=== PATIENT | female | born 1995 | race Caucasian/White ===

== ENCOUNTER 2017-06-04 09:36 | Emergency (ER) | payer SELFPAY ==
[~2017-06-04] VITALS: Ht 160 cm; Wt 55.8 kg
[2017-06-04 09:41] VITALS: BP 122/64
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
--- NOTE | 2017-06-04 10:34 | NUR ---
Patient being evaluated by DR DUNCAN at bedside.
[2017-06-04 10:44] VITALS: BP 116/77
--- NOTE | 2017-06-04 10:44 | NUR ---
Patient discharged with v/s stable. Written and verbal after care instructions given and explained. Patient verbalized understanding. Ambulatory with steady gait. All questions addressed prior to discharge. Advised to follow up with PMD.
== END 2017-06-04 10:44 | disposition home or self-care (01) ==
LOC: MED 09:36
DX: R10.30 Lower abdominal pain, unspecified (principal)
CPT/HCPCS: 81002; 81025; 99283

== ENCOUNTER 2020-09-25 22:12 | Inpatient (IN) | payer MEDICAID ==
[~2020-09-25] VITALS: Ht 165.1 cm; Wt 52.6 kg
[2020-09-25 22:26] VITALS: BP 92/62
--- NOTE | 2020-09-25 22:30 | NUR ---
PATIENT AMBUALTED TO THE LOBBY WITH STEADY GAIT.
[2020-09-25] MEDS ORDERED: ALUMINUM HYD/MAG/SIMETHICONE 30 ML UDC PO ONE (22:50)
[2020-09-25] MEDS ORDERED: ONDANSETRON 4 MG ODT PO ONE (22:50)
--- NOTE | 2020-09-25 22:57 | NUR ---
AMBULATED TO ER BED 1
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
--- NOTE | 2020-09-25 23:20 | NUR ---
ERMD at bedside for examination of patient
[2020-09-25 23:28] LABS: BASOPHILS # (AUTO) 0.1 K/uL (0.00-0.22); BASOPHILS % (AUTO) 0.7 % (0.0-2.0); EOSINOPHILS % (AUTO) 0.2 % (0.0-4.0); HEMOGLOBIN 11.7 g/dL (12.0-16.0); LYMPHOCYTES # (AUTO) 2.2 K/uL (2.5-16.5); LYMPHOCYTES % (AUTO) 22.2 % (20.5-51.1); MEAN CORPUSCULAR HEMOGLOBIN 33 pg (27-31); MEAN CORPUSCULAR HGB CONC 35 g/dL (33-37); MEAN CORPUSCULAR VOLUME 94.6 fL (80-94); MONOCYTES # (AUTO) 0.9 K/uL (0.8-1.0); MONOCYTES % (AUTO) 9.5 % (1.7-9.3); NEUTROPHILS # (AUTO) 6.5 K/uL (1.8-7.7); NEUTROPHILS % (AUTO) 67.4 % (42.2-75.2); PLATELET COUNT (AUTO) 203 K/uL (140-450); RED BLOOD CELL COUNT(AUTO) 3.59 MIL/uL (4.20-5.40); RED CELL DISTRIBUTION WIDTH 12.4 % (11.6-13.7); WHITE BLOOD COUNT (AUTO) 9.7 K/uL (4.8-10.8)
[2020-09-25] MEDS ORDERED: MORPHINE SULFATE 4 MG/ML SYR IVP ONE (23:35)
--- NOTE | 2020-09-25 23:38 | NUR ---
patient ambulated to the bathroom for urine collection.
--- NOTE | 2020-09-26 | NUR ---
ERMD went over consent form. Pt has no questions.
[2020-09-26 00:01] LABS: ALBUMIN 3.4 g/dL (3.4-5.0); ANION GAP 11.6 (8-16); CARBON DIOXIDE 28.7 mmol/L (21-32); CREATININE 0.7 mg/dL (0.6-1.3); POTASSIUM 4.3 mmol/L (3.5-5.1); TOTAL BILIRUBIN 0.7 mg/dL (0.0-1.0)
--- NOTE | 2020-09-26 00:40 | NUR ---
PATIENT TO CT VIA WHEELCHAIR
--- NOTE | 2020-09-26 01:02 | NUR ---
Patient appears to be resting comfortably in bed. Vital Signs within normal limits. Respirations even and unlabored.
[2020-09-26 01:09] LABS: APPEARANCE,URINE CLOUDY (CLEAR); BILIRUBIN,URINE NEGATIVE (NEGATIVE); BLOOD, URINE NEGATIVE (NEGATIVE); COLOR,URINE YELLOW (YELLOW); LEUKOCYTE ESTERASE ,URINE 1+ (NEGATIVE); NITRITE, URINE NEGATIVE (NEGATIVE); UGLUCOSE NEGATIVE (NEGATIVE)
[2020-09-26 01:17] LABS: RBC,URINE 0-5 /HPF (0-5); WBC,URINE 20-60 /HPF (0-5)
--- NOTE | 2020-09-26 02:15 | NUR ---
Patient appears to be resting comfortably in bed. Vital Signs within normal limits. Respirations even and unlabored. Talking on the phone. no signs of acute distress at this time.
[2020-09-26] MEDS ORDERED: cefTRIAXone 1,000 MG VIAL ONE (02:19)
[2020-09-26] MEDS ORDERED: NACL 0.9% 1,000 ML IV ONE (02:45)
[2020-09-26] MEDS ORDERED: DOXYCYCLINE 100 MG in DEXTROSE 5% 100 ML IV ONE (02:55)
[2020-09-26] MEDS ORDERED: DOXYCYCLINE 100 MG VIAL IV ONE ×2 (03:23→03:27)
[2020-09-26] MEDS ORDERED: KETOROLAC 30 MG/ML VIAL IVP ONE ×2 (04:25→06:10)
--- NOTE | 2020-09-26 04:28 | NUR ---
ERMD AT BEDSIDE TO SPEAK WITH PATIENT AND FOR RE-EXAMINATION
[2020-09-26] MEDS ORDERED: MORPHINE SULFATE 2 MG/ML SYR IVP PRN (05:05)
[2020-09-26] MEDS ORDERED: HYDROcodone/APAP 7.5/325 MG 1 TAB PO PRN (05:05)
--- NOTE | 2020-09-26 05:07 | NUR ---
JOJO COLLECTED AND SENT TO LAB, RECEIVED BY MITCHEL DAVIS
[2020-09-26] MEDS: NACL 0.9% 1,000 ML IV SCH ×3 (06:00→21:45)
--- NOTE | 2020-09-26 06:27 | NUR ---
Patient appears to be resting comfortably in bed. Vital Signs within normal limits. Respirations even and unlabored.
--- NOTE | 2020-09-26 07:15 | NUR ---
REPORT GIVEN TO ARACELI ELLIOTT FOR CONTINUATION OF CARE.
--- NOTE | 2020-09-26 07:23 | NUR ---
REPORT RECEIVED FROM NOEL RN FOR CONTINUITY OF CARE
--- NOTE | 2020-09-26 07:48 | NUR ---
RECEIVED REPORT FROM ER NURSE EARL. PATIENT TO BE TRANSFERRED TO UNIT. CC: RLQ ABD PAIN W/ FEVER AND CHILLS; DX: TUBAL OVARIAN CYST; NO SIGNIFICANT HX; NKA; FULL CODE, AMBULATORY. PATIENT AOx4 ON ROOM AIR; NPO EXCEPT MEDS; PATIENT HAS LAC 20G IV RUNNING NS @120ML. PENDING PATIENT TRANSFER.
--- NOTE | 2020-09-26 07:55 | NUR ---
Patient will be admitted to care of DR LING. Admited to TELEMETRY. Will go to room 104-B. Belongings list completed. Report to KAREN CHARLES.
--- NOTE | 2020-09-26 08:46 | NUR ---
PATIENT HAS BEEN SCREENED AND CATEGORIZED LOW NUTRITION RISK. PATIENT WILL BE SEEN WITHIN 7 DAYS OF ADMISSION. 10/02/[address]
[2020-09-26 09:30] VITALS: BP 90/66
--- NOTE | 2020-09-26 09:33 | NUR ---
PATIENT ARRIVED ONTO UNIT. PATIENT ORIENTED TO ROOM. V/S AND MRSA NARES SWAB OBTAINED. PATIENT DENIES PAIN. SAFETY MEASURES IN PLACE. WILL CONTINUE TO MONITOR.
[2020-09-26] MEDS: DOXYCYCLINE 100 MG in DEXTROSE 5% 100 ML IV SCH ×2 (09:52→22:11)
[2020-09-26] MEDS ORDERED: POTASSIUM CHLORIDE 10 MEQ TABER PO PRN (10:15)
[2020-09-26] MEDS ORDERED: MAG SULF 2000 MG/WATER PREMIX 50 ML IV PRN (10:15)
[2020-09-26] MEDS ORDERED: LORazepam 2 MG/ML VIAL IM/IVP PRN (10:15)
[2020-09-26] MEDS ORDERED: ONDANSETRON 4 MG/2 ML VIAL IM/IVP PRN (10:15)
[2020-09-26] MEDS ORDERED: ZOLPIDEM 5 MG TAB PO PRN (10:15)
[2020-09-26] MEDS ORDERED: ACETAMINOPHEN 325 MG TAB PO PRN (10:15)
[2020-09-26] MEDS ORDERED: DOCUSATE SODIUM 100 MG GELCAP PO PRN (10:15)
--- NOTE | 2020-09-26 10:15 | NUR ---
ADMINISTERED PRESCRIBED MEDS PER MD ORDER. PATIENT TOLERATED WELL. MEDICATION EDUCATION PROVIDED. PATIENT VERBALIZED UNDERSTANDING. SAFETY MEASURES IN PLACE. WILL CONTINUE TO MONITOR.
[2020-09-26 10:47] LABS: BASOPHILS % (AUTO) 0.3 % (0.0-2.0); EOSINOPHILS % (AUTO) 0.8 % (0.0-4.0); HEMATOCRIT 31.5 % (36-48); HEMOGLOBIN 10.6 g/dL (12.0-16.0); LYMPHOCYTES # (AUTO) 1.9 K/uL (2.5-16.5); LYMPHOCYTES % (AUTO) 30.1 % (20.5-51.1); MEAN CORPUSCULAR HEMOGLOBIN 32 pg (27-31); MEAN CORPUSCULAR HGB CONC 34 g/dL (33-37); MEAN CORPUSCULAR VOLUME 95.6 fL (80-94); MONOCYTES # (AUTO) 0.8 K/uL (0.8-1.0); MONOCYTES % (AUTO) 13.3 % (1.7-9.3); NEUTROPHILS # (AUTO) 3.4 K/uL (1.8-7.7); NEUTROPHILS % (AUTO) 55.5 % (42.2-75.2); PLATELET COUNT (AUTO) 172 K/uL (140-450); RED CELL DISTRIBUTION WIDTH 12.2 % (11.6-13.7); WHITE BLOOD COUNT (AUTO) 6.2 K/uL (4.8-10.8)
[2020-09-26 10:57] LABS: ANION GAP 9.5 (8-16); CARBON DIOXIDE 26.3 mmol/L (21-32); CREATININE 0.6 mg/dL (0.6-1.3); POTASSIUM 3.8 mmol/L (3.5-5.1)
[2020-09-26 11:02] LABS: PROTHROMBIN TIME 10.3 secs (10.8-13.4)
[2020-09-26 11:11] LABS: FREE T4 (FREE THYROXINE) 1.09 ng/dL (0.76-1.46); PHOSPHORUS 3.2 mg/dL (2.5-4.9); THYROID STIMULATING HORMONE 3.33 uIU/mL (0.34-3.74)
--- NOTE | 2020-09-26 12:21 | NUR ---
PATIENT RESTING IN BED. SHOWS NO SIGNS OF DISTRESS OR DISCOMFORT. VISIBLE RISE AND FALL OF CHEST NOTED. RESPIRATIONS ARE EVEN AND UNLABORED. SAFETY MEASURES IN PLACE. WILL CONTINUE TO MONITOR.
--- NOTE | 2020-09-26 15:00 | NUR ---
PATIENT UP AND ALERT IN BED WATCHING TELEVISION. STATES FEELING THE SAME W/ NO PAIN/DISCOMFORT. UPDATED PATIENT ON MD PLAN. PATIENT VERBALIZED UNDERSTANDING. SAFETY MEASURES IN PLACE. WILL CONTINUE TO MONITOR.
[2020-09-26 16:00] VITALS: BP 112/61
[2020-09-26 17:47] LABS: BARBITURATE, URINE NEGATIVE ng/ml (NEG <=200); BENZODIAZEPINE, URINE NEGATIVE ng/mL (NEG <=200); CANNABINOID, URINE NEGATIVE ng/mL (NEG <=50); COCAINE, URINE NEGATIVE ng/mL (NEG <=300); OPIATE, URINE NEGATIVE ng/mL (NEG <=2000); PHENCYCLIDINE SCREEN,URINE NEGATIVE ng/mL (NEG <=25)
--- NOTE | 2020-09-26 19:43 | NUR ---
ENDORSED PATIENT TO NIGHTSHIFT NURSE FOR CONTINUITY OF CARE.
--- NOTE | 2020-09-26 19:44 | NUR ---
RECEIVED BEDSIDE ENDORSEMENT FROM AM SHIFT RN. PATIENT IS AAOX4, ON ROOM AIR, DENIES PAIN, NO DISTRESS, IVF INFUSING, SAFETY MEASURES IN PLACE, PLAN OF CARE DISCUSSED, CALL LIGHT WITHIN REACH.
[2020-09-26 20:00] VITALS: BP 101/54
--- NOTE | 2020-09-26 21:22 | NUR ---
PT IS WATCHING TV. ROCEPHIN IV GIVEN ORDERED, PATIENT REFUSED HEPARIN, EXPLAINED RISKS AND BENEFITS, STILL REFUSED, WILL CONTINUE TO MONITOR, BEDSIDE ENDORSEMENT GIVEN TO ARACELI DAVID FOR CONTINUITY OF CARE, PT IS STABLE.
--- NOTE | 2020-09-26 21:35 | NUR ---
RECEIVED PT ON BED RESTING, AAOX4, ABLE TO MAKE NEEDS KNOWN, IV ANTIBIOTIC INFUSING WELL, DENIES ANY PAIN, MAINTAINED ON NPO EXCEPT MEDS, ALL NEEDS ATTENDED, CALL LIGHT WITHIN REACH.
--- NOTE | 2020-09-26 23:00 | NUR ---
SEEN PT AWAKE WATCHING TV AND USING HER CELLPHONE, DENIES ANY PAIN, IVF INFUSING WELL, CONTINUE TO MONITOR CLOSELY.
[2020-09-27] MEDS: NACL 0.9% 1,000 ML IV SCH ×3 (03:09→22:45)
--- NOTE | 2020-09-27 03:10 | NUR ---
PT SLEEPING, EASILY AROUSABLE, NEW IVF BAG HANGED, DENIES ANY PAIN, MAINTAINED ON NPO EXCEPT MEDS, MONITORED CLOSELY.
[2020-09-27 04:00] VITALS: BP 105/61
--- NOTE | 2020-09-27 05:50 | NUR ---
ROUNDS MADE, SEEN PT SLEEPING, NO SIGNS OF DISTRESS, IVF INFUSING WELL, MONITORED CLOSELY.
[2020-09-27 05:55] LABS: BASOPHILS % (AUTO) 0.4 % (0.0-2.0); EOSINOPHILS % (AUTO) 0.7 % (0.0-4.0); HEMATOCRIT 28.9 % (36-48); HEMOGLOBIN 9.9 g/dL (12.0-16.0); LYMPHOCYTES # (AUTO) 1.8 K/uL (2.5-16.5); LYMPHOCYTES % (AUTO) 28.9 % (20.5-51.1); MEAN CORPUSCULAR HEMOGLOBIN 33 pg (27-31); MEAN CORPUSCULAR HGB CONC 34 g/dL (33-37); MEAN CORPUSCULAR VOLUME 95.5 fL (80-94); MONOCYTES # (AUTO) 0.7 K/uL (0.8-1.0); MONOCYTES % (AUTO) 11.2 % (1.7-9.3); NEUTROPHILS # (AUTO) 3.6 K/uL (1.8-7.7); NEUTROPHILS % (AUTO) 58.8 % (42.2-75.2); PLATELET COUNT (AUTO) 150 K/uL (140-450); RED BLOOD CELL COUNT(AUTO) 3.02 MIL/uL (4.20-5.40); RED CELL DISTRIBUTION WIDTH 12.7 % (11.6-13.7); WHITE BLOOD COUNT (AUTO) 6.1 K/uL (4.8-10.8)
[2020-09-27 06:11] LABS: ANION GAP 13.1 (8-16); CARBON DIOXIDE 26.1 mmol/L (21-32); CREATININE 0.7 mg/dL (0.6-1.3); POTASSIUM 4.2 mmol/L (3.5-5.1)
[2020-09-27 06:18] LABS: CHOL/HDL RATIO 2.1 (1-4.5); MAGNESIUM 1.8 mg/dL (1.8-2.4); PHOSPHORUS 4.2 mg/dL (2.5-4.9)
--- NOTE | 2020-09-27 07:30 | NUR ---
PT AWAKE, NO SIGNS OF DISTRESS, BEDSIDE REPORT GIVEN TO ARACELI SOTO FOR CONTINUITY OF CARE.
--- NOTE | 2020-09-27 07:35 | NUR ---
RECEIVED PT FROM FAMILY CONSUMER SCIENCE [employer] TEACHER CHARGE NURSE, PT IS AWAKE NAD SEATED ON THE BED WITH IV LINE NOTED ON LAC G. 20 WITH NS INFUSING AT 100ML/HR, INTACT, SIDE RAILS ARE UP AND CALL LIGHT WITHIN REACH, PT IS ON RA AND NO SIGN OF DISTRESS NOTED, DENIES PAIN, WILL CONTINUE TO MONITOR PT.
[2020-09-27 08:00] VITALS: BP 112/59
--- NOTE | 2020-09-27 09:50 | NUR ---
PT'S IV LINE WAS INFILTRATED AND WILL DO RE-INSERTION NOW,
[2020-09-27] MEDS: DOXYCYCLINE 100 MG in DEXTROSE 5% 100 ML IV SCH ×2 (11:06→22:19)
--- NOTE | 2020-09-27 11:06 | NUR ---
PT WAS GIVEN IVPB ANTIBIOTIC NOW.
--- NOTE | 2020-09-27 11:10 | NUR ---
DR. LING CAME TO PT'S ROOM AND TALKED TO REGARDING THE POC, AND PT VERBALIZED UNDERSTANDING.
[2020-09-27 12:10] LABS: FOLIC ACID 12.3 ng/mL (>3.0)
--- NOTE | 2020-09-27 13:30 | NUR ---
PT IS RESTING ON THE BED, PLAYING WITH HER CP, DENIES PAIN.
[2020-09-27 16:00] VITALS: BP 111/67
--- NOTE | 2020-09-27 17:04 | NUR ---
PT IS SLEEPING AND NO SIGN OF DISTRESS NOTED.
--- NOTE | 2020-09-27 19:15 | NUR ---
ENDORSED PT TO AIRPORT OPERATIONS DUTY MANAGER NURSE FOR CONTINUITY OF CARE.
--- NOTE | 2020-09-27 19:16 | NUR ---
RECD. RESTING IN BE, AWAKE, A/OX4. RESPIRATION EVEN AND UNLABORED. PLEASANT AND COOPERATIVE. AMBULATORY TO THE BR. IV OF NS INFUSING AT 120 ML/HR,LEFT FOREARM G22. EATING HER DINNER BUT AWARE THAT SHE CANNOT EAT NOR DRINK PAST MIDNIGHT UNTIL OB MD SEES HER. MEDICATIONS AND CARE FOR THE SHIFT DISCUSSED. VERBALIZED UNDERSTANDING. DENIES PAIN 0/10.
[2020-09-27 20:00] VITALS: BP 119/73
--- NOTE | 2020-09-27 20:00 | NUR ---
PATIENT'S PLAN OF CARE WAS DISCUSSED AND REVIEWED WITH INDEPENDENT PRODUCER: MAKENZIE BARBER.
--- NOTE | 2020-09-27 21:00 | NUR ---
WATCHING TV. NO COMPLAINT OF PAIN 0/10.
[2020-09-28] VITALS: BP 97/71
--- NOTE | 2020-09-28 | NUR ---
AWAKE IN BED, REMINDED THAT SHE IS ALREADY NPO. VERBALIZED UNDERSTANDING.
--- NOTE | 2020-09-28 02:00 | NUR ---
SLEEPING COMFORTABLY IN BED.
[2020-09-28] MEDS: NACL 0.9% 1,000 ML IV SCH ×4 (03:48→23:45)
--- NOTE | 2020-09-28 04:00 | NUR ---
VS STABLE, 02 SAT - 97% ON ROOM AIR. COMFORTABLE IN BED ASLEEP.
--- NOTE | 2020-09-28 06:00 | NUR ---
NO COMPLAINT OF ABDOMINAL PAIN DURING THE SHIFT.
[2020-09-28 06:39] LABS: BASOPHILS % (AUTO) 0.6 % (0.0-2.0); EOSINOPHILS % (AUTO) 0.4 % (0.0-4.0); HEMATOCRIT 32.3 % (36-48); HEMOGLOBIN 10.9 g/dL (12.0-16.0); LYMPHOCYTES # (AUTO) 1.9 K/uL (2.5-16.5); LYMPHOCYTES % (AUTO) 23.9 % (20.5-51.1); MEAN CORPUSCULAR HEMOGLOBIN 33 pg (27-31); MEAN CORPUSCULAR HGB CONC 34 g/dL (33-37); MEAN CORPUSCULAR VOLUME 96.6 fL (80-94); MONOCYTES # (AUTO) 0.9 K/uL (0.8-1.0); MONOCYTES % (AUTO) 11.6 % (1.7-9.3); NEUTROPHILS # (AUTO) 5.2 K/uL (1.8-7.7); NEUTROPHILS % (AUTO) 63.5 % (42.2-75.2); PLATELET COUNT (AUTO) 203 K/uL (140-450); RED BLOOD CELL COUNT(AUTO) 3.34 MIL/uL (4.20-5.40); RED CELL DISTRIBUTION WIDTH 12.3 % (11.6-13.7); WHITE BLOOD COUNT (AUTO) 8.1 K/uL (4.8-10.8)
--- NOTE | 2020-09-28 07:05 | NUR ---
CONDITION REMAIN STABLE. WILL ENDORSE TO AM SHIFT NURSE FOR CONTINUITY OF CARE.
[2020-09-28 07:14] LABS: MAGNESIUM 1.8 mg/dL (1.8-2.4); PHOSPHORUS 3.8 mg/dL (2.5-4.9)
[2020-09-28 07:15] LABS: ANION GAP 9.5 (8-16); CARBON DIOXIDE 28.8 mmol/L (21-32); CREATININE 0.7 mg/dL (0.6-1.3); POTASSIUM 4.3 mmol/L (3.5-5.1)
[2020-09-28 08:00] VITALS: BP 107/67
[2020-09-28] MEDS: DOXYCYCLINE 100 MG in DEXTROSE 5% 100 ML IV SCH ×2 (09:21→20:35)
[2020-09-28 16:00] VITALS: BP 126/61
--- NOTE | 2020-09-28 19:25 | NUR ---
ENDORSED PT TO DIALYSIS REGISTERED NURSE NURSE FOR CONTINUITY OF CARE, PT STABLE. DENIES PAIN, CALL LIGHT WITHIN REACH.
--- NOTE | 2020-09-28 19:26 | NUR ---
RECEIVED PT IN STABLE CONDITION FROM AM NURSE. PT IS MED SURG. AWAKE,ALERT AND ORIENTED X4. AMBULATORY. ALREADY ON REGULAR DIET. NO C/O ANY PAIN AT THIS TIME. WITH IVF INFUSING WELL ON THE RT AC G#20.CLEAR AND PATENT. PLAN OF CARE DISCUSSED AND VERBALIZED UNDERSTANDING. FREQ ROUNDS NEEDED. BED ON LOW POSITION. SIDE RAISL UP X2 AND CALL LIGHT WITHIN REACH. WILL CONTINUE TO MONITOR.
--- NOTE | 2020-09-28 20:35 | NUR ---
PT REFUSED TO GET THE HEPARIN INJECTION AGAIN. WILL HAVE THE MD MADE AWARE.
[2020-09-28 21:00] VITALS: BP 105/61
--- NOTE | 2020-09-28 21:00 | NUR ---
PT REALLY REFUSED THE HEPARIN INJECTION EVEN AFTER MADE AWARE. WILL FOLLOW THIS UP WITH DR. LING IN AM FOR PT SAID OK IF SHE DOESN'T WANT IT.
--- NOTE | 2020-09-28 22:30 | NUR ---
CHECKED ON PT. ASLEEP. NO S/S OF ANY DISCOMFORT NOTED.
[2020-09-29] MEDS: NACL 0.9% 1,000 ML IV SCH ×2 (00:50→08:05)
--- NOTE | 2020-09-29 00:59 | NUR ---
MADE ROUNDS. PT ASLEEP. NO S/S O ANY DISCOMFORT NOTED. WILL CONTINUE TO MONITOR.
--- NOTE | 2020-09-29 01:30 | NUR ---
FAMILY CAME IN THE LOBBY . TALKED TO PT THROUGH CELL PHONE AND SEEN PT IN THE WINDOW.
--- NOTE | 2020-09-29 03:00 | NUR ---
MADE ROUNDS, PT ASLEEP. NO S/S OF ANY DISCOMFORT NOTED.
[2020-09-29 04:55] VITALS: BP 99/50
--- NOTE | 2020-09-29 05:00 | NUR ---
PT IS AWAKE. NO C/O ANY DISCOMFORT NOR PAIN NOTED.
[2020-09-29 06:00] LABS: BASOPHILS # (AUTO) 0.1 K/uL (0.00-0.22); BASOPHILS % (AUTO) 0.7 % (0.0-2.0); EOSINOPHILS # (AUTO) 0.1 K/uL (0-0.4); EOSINOPHILS % (AUTO) 0.9 % (0.0-4.0); HEMATOCRIT 33.1 % (36-48); HEMOGLOBIN 11.2 g/dL (12.0-16.0); LYMPHOCYTES # (AUTO) 2.3 K/uL (2.5-16.5); LYMPHOCYTES % (AUTO) 28.3 % (20.5-51.1); MEAN CORPUSCULAR HEMOGLOBIN 32 pg (27-31); MEAN CORPUSCULAR HGB CONC 34 g/dL (33-37); MONOCYTES # (AUTO) 0.8 K/uL (0.8-1.0); MONOCYTES % (AUTO) 9.3 % (1.7-9.3); NEUTROPHILS % (AUTO) 60.8 % (42.2-75.2); PLATELET COUNT (AUTO) 212 K/uL (140-450); RED BLOOD CELL COUNT(AUTO) 3.48 MIL/uL (4.20-5.40); RED CELL DISTRIBUTION WIDTH 12.1 % (11.6-13.7); WHITE BLOOD COUNT (AUTO) 8.3 K/uL (4.8-10.8)
[2020-09-29 07:12] LABS: CARBON DIOXIDE 24.9 mmol/L (21-32); CREATININE 0.6 mg/dL (0.6-1.3); POTASSIUM 3.9 mmol/L (3.5-5.1)
--- NOTE | 2020-09-29 07:18 | NUR ---
ENDORSED PT IN STABLE CONDITION TO AM NURSE FOR CONTINUITY OF CARE.
--- NOTE | 2020-09-29 07:19 | NUR ---
Pt resting in bed, respirations even & nonlabored in room air. No c/o pain. Call light within reach.
[2020-09-29 07:20] LABS: MAGNESIUM 1.7 mg/dL (1.8-2.4); PHOSPHORUS 3.9 mg/dL (2.5-4.9)
[2020-09-29 08:00] VITALS: BP 105/59
[2020-09-29] MEDS: DOXYCYCLINE 100 MG in DEXTROSE 5% 100 ML IV SCH (09:03)
[2020-09-29] MEDS ORDERED: FERR325E14 PO (10:00)
[2020-09-29] MEDS ORDERED: IBUP-2213 PO (10:00)
[2020-09-29] MEDS ORDERED: CEPH250C16 PO (10:00)
--- NOTE | 2020-09-29 11:19 | NUR ---
DC HOT DIE PRESS FEEDER: RECEIVED ORDER TO PROVIDE PATIENT A PCP. SPOKE TO [facility] PATIENTS EMERGENCY MEDICAL IS GOOD FOR THE MONTH OF APPLYING AND 30 DAYS AFTER. IT IS FULL SCOPE DURING THAT PERIOD OF TIME. PATIENT CAN GOOGLE ACCEPTING MEDICAL PROVIDERS IN [facility].
--- NOTE | 2020-09-29 13:00 | NUR ---
Written and discharge instructions provided to patient: -prescriptions sent to her preferred pharmacy -side effect of ferrous sulfate: constipation, dark stool -take antibiotic Keflex as prescribed until she runs out -find PCP and schedule for f/u in 3-5 days -Make appointment with Dr. Lopez -avoid strenuous activity until cleared by PCP/OB -return to ER if condition worsen Patient able to verbalize understanding and repeat back instructions. Right AC IV discontinued, cannula intact.
--- NOTE | 2020-09-29 14:45 | NUR ---
Patient discharged at this time. Ambulated off unit, patient's boyfriend at [facility] for transport home. All belongings with patient upon departure.
== END 2020-09-29 14:45 | disposition home or self-care (01) | DRG 720 ==
LOC: MED 22:12 → MMU 09-26 05:10 → MTU 09-26 06:02
DX: A41.9 Sepsis, unspecified organism (principal); E83.42 Hypomagnesemia; K56.7 Ileus, unspecified; N70.93 Salpingitis and oophoritis, unspecified; N39.0 Urinary tract infection, site not specified; Z20.822 Contact with and (suspected) exposure to COVID-19; D50.9 Iron deficiency anemia, unspecified
CPT/HCPCS: 36415; 71045; 76856; 80048; 80053; 80305; 81001; 82607; 82728; 82746; 83036; 83540; 83690; 83735; 84100; 84134; 84439; 84443; 84702; 85025; 85045; 85610; 85651; 85730; 86140; 87040; 87081; 87086; 96365; 96367; 96374; 99291; J0696; J1644; J1885; J2270; J3490; J7060; Q0162; Q9967